=== PATIENT | male | born 1985 | race Two or more races ===

== ENCOUNTER 2016-12-29 15:04 | Emergency (ER) | payer MEDICAID ==
[~2016-12-29] VITALS: Ht 175.3 cm; Wt 59.0 kg
--- NOTE | 2016-12-29 15:20 | NUR ---
self presents to ed: depression. si with plan to "cut self".
[2016-12-29 16:01] LABS: BASOPHILS % (AUTO) 0.5 % (0.0-2.0); EOSINOPHILS # (AUTO) 0.1 /CMM (0.0-0.7); EOSINOPHILS % (AUTO) 1.2 % (0.0-6.0); HEMATOCRIT 41 % (39-51); HEMOGLOBIN 13.8 g/dL (13.5-17.5); LYMPHOCYTES # (AUTO) 1.4 /CMM (0.8-4.8); LYMPHOCYTES % (AUTO) 24.7 % (20.0-44.0); MEAN CORPUSCULAR HEMOGLOBIN 32 PG (26.0-33.0); MEAN CORPUSCULAR HGB CONC 34 g/dl (31.0-36.0); MEAN CORPUSCULAR VOLUME 95 fL (80-96); MONOCYTES # (AUTO) 0.4 /CMM (0.1-1.30); MONOCYTES % (AUTO) 7.3 % (2.0-12.0); NEUTROPHILS # (AUTO) 3.8 /CMM (1.8-8.9); NEUTROPHILS % (AUTO) 66.3 % (43.0-81.0); PLATELET COUNT (AUTO) 154 /CMM (150-450); RDW COEFFICIENT OF VARIATION 14.3 (11.5-15.0); RED BLOOD CELL COUNT(AUTO) 4.34 MIL/uL (4.5-6.0); WHITE BLOOD COUNT (AUTO) 5.7 K/uL (4.3-11.0)
[2016-12-29 16:16] LABS: CALCIUM, SERUM 8.3 mg/dL (8.5-10.1); CARBON DIOXIDE 31 mmol/L (21-32); CHLORIDE 102 mmol/L (98-107); CREATININE 0.9 mg/dL (0.6-1.3); GLUCOSE 94 mg/dL (74-106); POTASSIUM 3.6 mmol/L (3.5-5.1); SODIUM SERUM 140 mmol/L (136-145); UREA NITROGEN, BLOOD 19 mg/dL (7-18)
[2016-12-29 16:21] LABS: ALCOHOL, BLOOD < 3 mg/dL (0-0)
--- NOTE | 2016-12-29 16:25 | NUR ---
CALLED FOR FOOD TRAY
--- NOTE | 2016-12-29 18:23 | NUR ---
PINKY AT BEDSIDE
--- NOTE | 2016-12-29 21:09 | NUR ---
CALLED [facility] AND SPOKE WITH DEE[facility]KA TO ARRANGE S TRANSPORT TO [facility]. ETA 20-30 MINUTES.
[2016-12-29 21:11] VITALS: BP 104/61
--- NOTE | 2016-12-29 21:17 | NUR ---
GAVE REPORT TO SHIV AT [facility] DX MAJOR DEPRESSION DR [facility]IN [facility]. TRANSPORT ETA 30 MINS
== END 2016-12-29 22:07 ==
LOC: ER 15:09
DX: F32.9 Major depressive disorder, single episode, unspecified (principal); F17.200 Nicotine dependence, unspecified, uncomplicated
CPT/HCPCS: 36415; 80048-TC; 80305; 85025-TC; A4606; G0480; Z7610